=== PATIENT | male | born 1965 | race American Indian/Alaskan Native ===

== ENCOUNTER 2020-07-11 04:32 | Emergency (ER) | payer MEDICAID ==
[2020-07-11 05:51] LABS: Amphetamine Screen,Urine PRESUMPTIVE NEGATIVE; Benzodiazepines Screen,Urine PRESUMPTIVE NEGATIVE; Cannabinoid Screen,Urine PRESUMPTIVE POSITIVE; Cocaine Screen,Urine PRESUMPTIVE POSITIVE; Methadone Screen,Urine PRESUMPTIVE NEGATIVE; Opiate Screen,Urine PRESUMPTIVE NEGATIVE
[2020-07-11 05:55] LABS: Bilirubin,Urine NEG (Negative); Blood,Urine SM (Negative); Color,Urine Yellow (Yellow); Mucus,Urine FEW /HPF; Protein,Urine <15 mg/dL mg/dL (Negative); WBC,Urine < 1.0 /HPF (0.0-6.0)
[2020-07-11 05:59] LABS: Basophils % (Auto) 0.8 % (0.0-1.8); Eosinophils # (Auto) 0.2 K/mm3 (0.0-0.4); Eosinophils % (Auto) 3.1 % (0.0-4.3); Hematocrit 36.5 % (35.5-45.6); Hemoglobin 12.5 gm/dl (11.8-15.2); Lymphocytes # (Auto) 1.9 K/mm3 (1.2-5.4); Lymphocytes % (Auto) 31.9 % (13.4-35.0); Mean Corpuscular HGB Conc 34 % (32-34); Mean Corpuscular Volume 86 fl (84-94); Monocytes # (Auto) 0.5 K/mm3 (0.0-0.8); Platelet Count 285 K/mm3 (140-440); Red Blood Count 4.24 M/mm3 (3.65-5.03); Red Cell Distribution Width 16.6 % (13.2-15.2)
[2020-07-11 06:10] LABS: BUN/Creatinine Ratio 14; Blood Urea Nitrogen 15 mg/dL (9-20); Calcium 9.4 mg/dL (8.4-10.2); Hemolysis Index 6
--- NOTE | 2020-07-11 06:16 | Emergency Department Report ---
ED Psych HPI - General Chief Complaint: Psych Stated Complaint: MH Time Seen by Provider: 07/11/20 06:11 Source: patient, EMS Mode of arrival: Ambulatory - History of Present Illness Initial Comments: This is a 54-year old homeless man brought in by [facility] for a "possible overdose of unknown pills". According to the triage note the patient stated that he took these pills from a friend 1 to 2 hours prior to arrival. Furthermore, he reports that of the patient "possibly trying to jump off a bridge or a house". According to the triage note the patient states that he "wants to take it, and blow up his head". On my encounter, the patient is essentially noncommunicative. He is not speaking in complete sentences. He just responds with a yes or no answer to questions like "are you hungry" or "do you want to hurt yourself". Otherwise he is not elaborating whatsoever. MD Complaint: suicidal ideation -: unknown Associated Psychiatric Symptoms: suicidal ideation History of same: No (Patient is now denying. However dubious.) Quality: other Context: recent drug abuse Associated Symptoms: other (Not offering any complaints) Treatments Prior to Arrival: placed on mental he If Self Harm: admits thoughts of - Related Data Allergies Allergy/AdvReac Type Severity Reaction Status Date / Time No Known Allergies Allergy Unverified 07/11/20 04:42 ED Review of Systems ROS: Stated complaint: MH Other details as noted in HPI Comment: Unobtainable due to pts medical conditions (Does admit to frequent cough) ED Past Medical Hx - Past Medical History Previous Medical History?: No Additional medical history: Not offering any medical history - Social History Smoking Status: Current Every Day Smoker ED Physical Exam - General Limitations: Other (Substance abuse and poor cooperation) General appearance: alert, in no apparent distress - Head Head exam: Present: atraumatic, normocephalic - Eye Eye exam: Present: normal appearance, PERRL, EOMI. Absent: scleral icterus - ENT ENT exam: Present: mucous membranes moist - Neck Neck exam: Present: normal inspection - Respiratory Respiratory exam: Present: normal lung sounds bilaterally. Absent: respiratory distress - Cardiovascular Cardiovascular Exam: Present: regular rate, normal rhythm. Absent: systolic murmur, diastolic murmur, rubs, gallop - GI/Abdominal GI/Abdominal exam: Present: soft, normal bowel sounds. Absent: distended, tenderness, guarding, rebound, rigid - Rectal Rectal exam: Present: deferred - Extremities Exam Extremities exam: Present: normal inspection - Back Exam Back exam: Present: normal inspection - Neurological Exam Neurological exam: Present: alert, oriented X3, CN II-XII intact. Absent: motor sensory deficit - Psychiatric Psychiatric exam: Present: normal mood, flat affect - Skin Skin exam: Present: warm, dry, intact, normal color. Absent: rash ED Course Vital Signs 07/11/20 07/11/20 04:45 05:10 Temperature 98.5 F Pulse Rate 87 Respiratory 20 20 Rate Blood Pressure 111/66 O2 Sat by Pulse 97 97 Oximetry - Reevaluation(s) Reevaluation #1: The patient is placed on a 1013. He will have a chest x-ray and a coronavirus PCR. He answer to the affirmative that he has been coughing frequently. 07/11/20 07:06 ED Medical Decision Making - Lab Data Result diagrams: 07/11/20 05:33 07/11/20 05:33 Laboratory Results - last 24 hr 07/11/20 07/11/20 07/11/20 05:27 05:27 05:33 WBC RBC Hgb Hct MCV MCH MCHC RDW Plt Count Lymph % (Auto) [place] % (Auto) Eos % (Auto) Baso % (Auto) Lymph # (Auto) [place] # (Auto) Eos # (Auto) Baso # (Auto) Seg Neutrophils % Seg Neutrophils # Sodium Potassium Chloride Carbon Dioxide Anion Gap BUN Creatinine Estimated GFR BUN/Creatinine Ratio Glucose Calcium Urine Color Yellow Urine Turbidity Clear Urine pH 5.[address] 1.012 Urine Protein <15 mg/dl Urine Glucose (UA) Neg Urine Ketones Neg Urine Blood Sm Urine Nitrite Neg Urine Bilirubin Neg Urine Urobilinogen 4.0 Ur Leukocyte Esterase Neg Urine WBC (Auto) < 1.0 Urine RBC (Auto) 2.0 Urine Mucus Few Urine Opiates Screen Presumptive negative Urine Methadone Screen Presumptive negative Acetaminophen 5.0 L Ur Barbiturates Screen Presumptive negative Ur Phencyclidine Scrn Presumptive negative Ur Amphetamines Screen Presumptive negative U Benzodiazepines Scrn Presumptive negative Urine Cocaine Screen Presumptive positive U Marijuana (THC) Screen Presumptive positive Plasma/Serum Alcohol 07/11/20 07/11/20 07/11/20 05:33 05:33 05:33 WBC 6.1 RBC 4.24 Hgb 12.5 Hct 36.5 MCV 86 MCH 29 MCHC 34 RDW 16.6 H Plt Count 285 Lymph % (Auto) 31.9 [place] % (Auto) 8.0 H Eos % (Auto) 3.1 Baso % (Auto) 0.8 Lymph # (Auto) 1.9 [place] # (Auto) 0.5 Eos # (Auto) 0.2 Baso # (Auto) 0.0 Seg Neutrophils % 56.2 Seg Neutrophils # 3.4 Sodium 141 Potassium 4.0 Chloride 101.5 Carbon Dioxide 25 Anion Gap 19 BUN 15 Creatinine 1.1 Estimated GFR > 60 BUN/Creatinine Ratio 14 Glucose 96 Calcium 9.4 Urine Color Urine Turbidity Urine pH Ur Specific [place] Urine Protein Urine Glucose (UA) Urine Ketones Urine Blood Urine Nitrite Urine Bilirubin Urine Urobilinogen Ur Leukocyte Esterase Urine WBC (Auto) Urine RBC (Auto) Urine Mucus Urine Opiates Screen Urine Methadone Screen Acetaminophen Ur Barbiturates Screen Ur Phencyclidine Scrn Ur Amphetamines Screen U Benzodiazepines Scrn Urine Cocaine Screen U Marijuana (THC) Screen Plasma/Serum Alcohol 0.10 H Laboratory Results - last 24 hr 07/11/20 07/11/20 07/11/20 05:27 05:27 05:33 WBC RBC Hgb Hct MCV MCH MCHC RDW Plt Count Lymph % (Auto) [place] % (Auto) Eos % (Auto) Baso % (Auto) Lymph # (Auto) [place] # (Auto) Eos # (Auto) Baso # (Auto) Seg Neutrophils % Seg Neutrophils # Sodium Potassium Chloride Carbon Dioxide Anion Gap BUN Creatinine Estimated GFR BUN/Creatinine Ratio Glucose Calcium Total Creatine Kinase CK-MB (CK-2) CK-MB (CK-2) Rel Index Urine Color Yellow Urine Turbidity Clear Urine pH 5.[address] 1.012 Urine Protein <15 mg/dl Urine Glucose (UA) Neg Urine Ketones Neg Urine Blood Sm Urine Nitrite Neg Urine Bilirubin Neg Urine Urobilinogen 4.0 Ur Leukocyte Esterase Neg Urine WBC (Auto) < 1.0 Urine RBC (Auto) 2.0 Urine Mucus Few Salicylates < 0.3 L Urine Opiates Screen Presumptive negative Urine Methadone Screen Presumptive negative Acetaminophen Ur Barbiturates Screen Presumptive negative Ur Phencyclidine Scrn Presumptive negative Ur Amphetamines Screen Presumptive negative U Benzodiazepines Scrn Presumptive negative Urine Cocaine Screen Presumptive positive U Marijuana (THC) Screen Presumptive positive Drugs of Abuse Note Disclamer Plasma/Serum Alcohol 07/11/20 07/11/20 07/11/20 05:33 05:33 05:33 WBC RBC Hgb Hct MCV MCH MCHC RDW Plt Count Lymph % (Auto) [place] % (Auto) Eos % (Auto) Baso % (Auto) Lymph # (Auto) [place] # (Auto) Eos # (Auto) Baso # (Auto) Seg Neutrophils % Seg Neutrophils # Sodium 141 Potassium 4.0 Chloride 101.5 Carbon Dioxide 25 Anion Gap 19 BUN 15 Creatinine 1.1 Estimated GFR > 60 BUN/Creatinine Ratio 14 Glucose 96 Calcium 9.4 Total Creatine Kinase CK-MB (CK-2) CK-MB (CK-2) Rel Index Urine Color Urine Turbidity Urine pH Ur Specific [place] Urine Protein Urine Glucose (UA) Urine Ketones Urine Blood Urine Nitrite Urine Bilirubin Urine Urobilinogen Ur Leukocyte Esterase Urine WBC (Auto) Urine RBC (Auto) Urine Mucus Salicylates Urine Opiates Screen Urine Methadone Screen Acetaminophen 5.0 L Ur Barbiturates Screen Ur Phencyclidine Scrn Ur Amphetamines Screen U Benzodiazepines Scrn Urine Cocaine Screen U Marijuana (THC) Screen Drugs of Abuse Note Plasma/Serum Alcohol 0.10 H 07/11/20 07/11/20 05:33 06:16 WBC 6.1 RBC 4.24 Hgb 12.5 Hct 36.5 MCV 86 MCH 29 MCHC 34 RDW 16.6 H Plt Count 285 Lymph % (Auto) 31.9 [place] % (Auto) 8.0 H Eos % (Auto) 3.1 Baso % (Auto) 0.8 Lymph # (Auto) 1.9 [place] # (Auto) 0.5 Eos # (Auto) 0.2 Baso # (Auto) 0.0 Seg Neutrophils % 56.2 Seg Neutrophils # 3.4 Sodium Potassium Chloride Carbon Dioxide Anion Gap BUN Creatinine Estimated GFR BUN/Creatinine Ratio Glucose Calcium Total Creatine Kinase 857 H CK-MB (CK-2) 11.4 H CK-MB (CK-2) Rel Index 1.3 Urine Color Urine Turbidity Urine pH Ur Specific [place] Urine Protein Urine Glucose (UA) Urine Ketones Urine Blood Urine Nitrite Urine Bilirubin Urine Urobilinogen Ur Leukocyte Esterase Urine WBC (Auto) Urine RBC (Auto) Urine Mucus Salicylates Urine Opiates Screen Urine Methadone Screen Acetaminophen Ur Barbiturates Screen Ur Phencyclidine Scrn Ur Amphetamines Screen U Benzodiazepines Scrn Urine Cocaine Screen U Marijuana (THC) Screen Drugs of Abuse Note Plasma/Serum Alcohol - Radiology Data Radiology results: report reviewed, image reviewed (NAF) Critical care attestation.: If time is entered above; I have spent that time in minutes in the direct care of this critically ill patient, excluding procedure time. ED Disposition Clinical Impression: Cocaine abuse, Suicidal ideation, Homelessness Disposition: [id number]/TX-[id number] PSY HOSP/PSY UNIT Is pt being admited?: No Does the pt Need Aspirin: No Condition: Stable Referrals: PRIMARY CARE, [Primary Care Provider] - 3-5 Days Time of Disposition: 07:46
[2020-07-11 06:56] LABS: Creatine Kinase MB 11.4 ng/mL (0.0-4.0)
[2020-07-11] MEDS ORDERED: MAGNESIUM HYDROXIDE (MOM) ORAL LIQD UDC PO PRN (07:05)
[2020-07-11] MEDS ORDERED: ACETAMINOPHEN 325 MG TAB PO PRN (07:05)
[2020-07-11] MEDS ORDERED: ALUM-MAG HYDROXIDE-SIMETHICONE 200-200-20MG/5ML ORAL LIQD 30 ML PO PRN (07:05)
--- NOTE | 2020-07-11 07:30 | XRay Report ---
CHEST 1 VIEW INDICATION / CLINICAL INFORMATION: cough. COMPARISON: None available. FINDINGS: SUPPORT DEVICES: None. HEART / MEDIASTINUM: No significant abnormality. LUNGS / PLEURA: No significant pulmonary or pleural abnormality. No pneumothorax. ADDITIONAL FINDINGS: No significant additional findings. IMPRESSION: 1. No acute findings. Signer Name: Elidia Castro MD Signed: 07/11/2020 7:25 AM Workstation Name: [id number]
[2020-07-12 07:45] VITALS: BP 106/66
--- NOTE | 2020-07-12 10:17 | Consultation ---
History of Present Illness - Reason for Consult Consult date: 07/12/20 Reason for consult: SI, Substance abuse - History of Present Psychiatric Illness Elgin Vizcarra is a 54y/o male patient who presented to the ER for SI and visual hallucinations. During my interview with the patient today, he is a/o x 3. He says he's hearing voices telling him to "kill myself and jump off a bridge." He says he's been off his meds about "three months." He denies using any illicit dr ugs or alcohol but urine is positive for cocaine, and alcohol use. The patient says he smokes pack cigarets daily. The patient states he is "depressed." He says he "sleeps okay and appetite is good." PAST PSYCHIATRIC HISTORY Diagnoses: schizophrenia Suicide attempts or Self-harm behavior: denies Prior psychiatric hospitalizations: Yes Substance Abuse history: cocaine, alcohol Previous psychiatric medications tried: thorazine Outpatient treatment: not currently PAST MEDICAL HISTORY: none reported Family Psychiatric History: None reported or documented SOCIAL HISTORY Marital Status: Living Arrangements: Homeless Employment Status: Disabled Access to guns/weapons: None reported Education: 10th grade History of Abuse: None reported Legal History: Denies REVIEW OF SYSTEMS Constitutional: Negative for weight loss ENT: Negative for stridor Respiratory: Negative for cough or hemoptysis All other systems reviewed and are negative MENTAL STATUS EXAMINATION General Appearance: Dressed appropriately. Behavior: calm and Cooperative Mood: "depressed" Affect: Congruent with stated mood Speech: Normal tone, and pace Thought Process: Goal directed Suicidal Ideation: Yes Homicidal Ideation: Denies Hallucinations: Auditory Delusions: None elicited Insight and Judgment: Limited Memory/Cognition: Limited ASSESSMENT Schizoaffective Disorder Cocaine Use Disorder Noncompliance with medical regimen and other treatments Alcohol Abuse Substance Induced Mood Disorder TREATMENT PLAN [address] 125mg po BID Risperidone 0.5mg po BID Trazodone 50mg po qhs Melatonin 5mg po qhs prn insomnia Nicotine patch 21mg daily Folic acid 1mg po daily Multivitamin 1 tab daily Sitter: Defer to primary Medical: Per primary Disposition: Recommend acute inpatient psychiatric treatment Will follow. Thank you for this consult. Medications and Allergies Allergies Allergy/AdvReac Type Severity Reaction Status Date / Time No Known Allergies Allergy Unverified 07/11/20 04:42 Home Medications Medication Instructions Recorded Confirmed Last Taken Type No Known Home Medications [No 07/11/20 07/11/20 Unknown History Reported Home Medications] Active Meds: Active Medications Acetaminophen (Tylenol) 650 mg PO Q4HR PRN PRN Reason: Pain MILD(1-3)/Fever >100.5/RIVERA Al Hydrox/Mg Hydrox/Simethicone (Alum-Mag Hydrox-Simeth [id number]/5ml) 30 ml PO Q4HR PRN PRN Reason: Indigestion Magnesium Hydroxide (Milk Of Magnesia) 30 ml PO Q12HR PRN PRN Reason: Constipation Mental Status Exam - Vital signs Last Vital Signs Temp 98.4 F 07/12/20 07:44 Pulse 66 07/12/20 07:44 Resp 20 07/12/20 07:44 BP 106/66 07/12/20 07:44 Pulse Ox 98 07/12/20 07:44 Results Result Diagrams: 07/11/20 05:33 07/11/20 05:33 All other labs normal.
[2020-07-12] MEDS ORDERED: chlordiazePOXIDE 25 MG CAP PO PRN ×2 (10:22)
[2020-07-12] MEDS ORDERED: MULTIVITAMINS ,THERAPEUTIC TAB PO SCH (11:00)
[2020-07-12] MEDS ORDERED: risperiDONE 0.25 MG TAB PO SCH (11:00)
[2020-07-12] MEDS ORDERED: FOLIC ACID 1 MG TAB PO SCH (11:00)
[2020-07-12] MEDS ORDERED: DIVALPROEX DR 125 MG TAB PO SCH (11:00)
[2020-07-12] MEDS ORDERED: NICOTINE 21 MG/24 HR PATCH TD SCH (11:00)
[2020-07-12] MEDS ORDERED: GABAPENTIN 400 MG CAP ONE (11:33)
[2020-07-12] MEDS ORDERED: MELATONIN 5 MG TAB PO PRN (22:00)
[2020-07-12] MEDS ORDERED: traZODone 50 MG TAB PO SCH (22:00)
== END 2020-07-12 18:07 ==
LOC: ED 04:32
DX: R45.851 Suicidal ideations (principal); F14.10 Cocaine abuse, uncomplicated; F17.200 Nicotine dependence, unspecified, uncomplicated; Z59.0 Homelessness
CPT/HCPCS: 36415; 71045; 80048; 80307; 81001; 82550; 82553; 85025; 99285; U0003; 80320; G0480

== ENCOUNTER 2020-07-12 15:59 | Inpatient (IN) | payer MEDICAID ==
[2020-07-12 20:18] LABS: Chol/HDL Ratio 1.75 %
[2020-07-12] MEDS: traZODone 50 MG TAB PO SCH (22:41)
--- NOTE | 2020-07-13 11:00 | History and Physical Report ---
GP History & Physical - History of Present Illness Date of admission: 07/12/20 Date of Examination: 07/13/20 Reason for Admission: Danger to self, Failure of Outpatient Treatment History of Present Illness: Amrik Vizcarra is a 54y/o male patient who presented to the ER for SI and visual hallucinations. I first examined the patient in the ER yesterday. During my interview with the patient today, he is a/o x 3. Yesterday he stated that he was he's hearing voices telling him to "kill myself and jump off a bridge." The patient says he is no longer hearing the voices today. When asked was he still suicidal, the patient states "a little." He says he's been off his meds about "three months." He admitted today to using cocaine, and alcohol use. The patient says he smokes pack cigarets daily. The patient states he is "depressed." He says he "sleeps good and appetite is good." PAST PSYCHIATRIC HISTORY Diagnoses: schizophrenia Suicide attempts or Self-harm behavior: denies Prior psychiatric hospitalizations: Yes Substance Abuse history: cocaine, alcohol Previous psychiatric medications tried: thorazine Outpatient treatment: not currently PAST MEDICAL HISTORY: none reported Family Psychiatric History: None reported or documented SOCIAL HISTORY Marital Status: Living Arrangements: Homeless Employment Status: Disabled Access to guns/weapons: None reported Education: 10th grade History of Abuse: None reported Legal History: Denies REVIEW OF SYSTEMS Constitutional: Negative for weight loss ENT: Negative for stridor Respiratory: Negative for cough or hemoptysis All other systems reviewed and are negative MENTAL STATUS EXAMINATION General Appearance: Dressed appropriately. Behavior: calm and Cooperative Mood: "depressed" Affect: Congruent with stated mood Speech: Normal tone, and pace Thought Process: Goal directed Suicidal Ideation: Yes Homicidal Ideation: Denies Hallucinations: Auditory Delusions: None elicited Insight and Judgment: Limited Memory/Cognition: Limited ASSESSMENT Schizophrenia Cocaine Use Disorder Noncompliance with medical regimen and other treatments Alcohol Abuse Treatment Plan Patient admitted for inpatient psychiatric evaluation, medication adjustment and close monitoring The patient's behavior, mood, sleep and appetite will be closely monitored. Patient enrolled in individual and group therapeutic sessions and encouraged to attend. Patient provided with a safe and structured environment. Patient's physical health needs will be addressed by the Hospitalist. Hospitalist Consulted Labs including CBC, CMP, Lipid profile and Hemoglobin A1C levels ordered for baseline reference Social Assessment will be completed and the Investment Counselor will work with patient and family to ensure a suitable and safe disposition Medication adjustment will be made as clinically indicated JOSE Reed DR 125mg po BID Risperidone 0.5mg po BID Trazodone 50mg po qhs Melatonin 5mg po qhs prn insomnia Nicotine patch 21mg daily Folic acid 1mg po daily Usual Wellness Voodoo/Preservation: - Start Trazodone 50 mg po QHS & 50 mg po QHS PRN between 10 PM & 2 AM for insomnia - Start Melatonin 5 mg po QHS to promote circadian rhythm - Start [place]-3 for brain health, reduce impulsivity, and as adjunctive treatment for mood disorder, continue upon discharge given overall benefits. - Start B1 prophylaxis with 200 mg po for 5 days This is to certify that Am[facility] because he is expected to improve for auditory hallucinations and suicidal thoughts. Estimated days: 5 Post hospital care: primary care provider, psychiatric provider Legal Status: Voluntary Reaction to Hospitalization: Accepting Medications and Allergies Allergies Allergy/AdvReac Type Severity Reaction Status Date / Time No Known Allergies Allergy Unverified 07/11/20 04:42 Home Medications Medication Instructions Recorded Confirmed Last Taken Type No Known Home Medications [No 07/11/20 07/12/20 Unknown History Reported Home Medications] Active Meds: Active Medications Trazodone HCl (Desyrel) 50 mg PO QHS [facility] Last Admin: 07/12/20 22:41 Dose: 50 mg Documented by: Results - Results Labs/Vitals: Laboratory Last Values POC Glucose 131 mg/dL (70-105) H 07/12/20 20:49 Hemoglobin A1c 5.5 % (4-6) 07/12/20 19:33 Triglycerides 76 mg/dL (2-149) 07/12/20 19:33 Cholesterol 181 mg/dL (50-199) 07/12/20 19:33 LDL Cholesterol Direct 82 mg/dL (50-130) 07/12/20 19:33 HDL Cholesterol 103 mg/dL (40-59) H 07/12/20 19:33 Cholesterol/HDL Ratio 1.75 % 07/12/20 19:33 TSH 3.470 mlU/mL (0.270-4.200) 07/12/20 19:33 Last Vital Signs Temp 98.6 F 07/13/20 08:35 Pulse 84 11/10/20 08:35 Resp 18 07/13/20 08:35 BP 108/73 07/13/20 08:35 Pulse Ox 95 07/13/20 08:35 Physical Examination - Constitutional Vitals: Vital Signs Temp Pulse Resp BP Pulse Ox 98.6 F 84 18 108/73 95 07/13/20 08:35 07/13/20 08:35 07/13/20 08:35 07/13/20 08:35 07/13/20 08:35 Temperature -Last 24 Hours Temperature 98.6 F Temperature 98.6 F Temperature 98.6 F Temperature 98.7 F Mental Status Exam - Vital signs Last Vital Signs Temp 98.6 F 07/13/20 08:35 Pulse 84 07/13/20 08:35 Resp 18 07/13/20 08:35 BP 108/73 07/13/20 08:35 Pulse Ox 95 07/13/20 08:35 Physician Certification - Certification Statement Physician Certification Statement: This is an acknowledgement statement that AMRIK VIZCARRA is a 54 year old M who requires inpatient psychiatric admission for treatment which could reasonably be expected to improve the patient's condition for Estimated period of time patient will need to remain in the hospital: [ ] Plan for post-hospital care: [ ]
[2020-07-13] MEDS ORDERED: MELATONIN 5 MG TAB PO PRN (11:04)
[2020-07-13] MEDS ORDERED: chlordiazePOXIDE 25 MG CAP PO PRN ×2 (11:04)
[2020-07-13] MEDS: NICOTINE 21 MG/24 HR PATCH TD SCH (12:10)
[2020-07-13] MEDS: FOLIC ACID 1 MG TAB PO SCH (12:10)
[2020-07-13] MEDS: DIVALPROEX DR 125 MG TAB PO SCH ×2 (12:10→22:27)
[2020-07-13] MEDS: risperiDONE 0.25 MG TAB PO SCH ×2 (12:15→22:28)
--- NOTE | 2020-07-13 17:56 | Consultation ---
History of Present Illness - Reason for Consult Consult date: 07/13/20 medical management Requesting physician: MACHELLE DE LA CRUZ - History of Present Illness Patient is a 54-year-old female admitted to the hospital with suicidal ideation and visual hallucination yelling that he she is going to kill herself and jump off a bridge. We requested to assist in management of the patient while admitted. She denies any chest pain nausea vomiting or diarrhea denies any chronic medical condition high blood pressure diabetes cholesterol problems in the past. Although she smokes tobacco a pack a day. She did reportedly inform the staff that she was depressed. Past History Past Medical History: other (Depression) Past Surgical History: No surgical history Social history: smoking Family history: no significant family history Medications and Allergies Allergies Allergy/AdvReac Type Severity Reaction Status Date / Time No Known Allergies Allergy Unverified 07/11/20 04:42 Home Medications Medication Instructions Recorded Confirmed Last Taken Type No Known Home Medications [No 07/11/20 07/12/20 Unknown History Reported Home Medications] Active Meds: Active Medications Chlordiazepoxide HCl (Librium) 50 mg PO Q1H PRN PRN Reason: CIWA-Ar 8-15 Chlordiazepoxide HCl (Librium) 100 mg PO Q1H PRN PRN Reason: CIWA-Ar 16-25 Divalproex Sodium (Depakote Dr) 125 mg PO BID [facility] Last Admin: 07/13/20 12:10 Dose: 125 mg Documented by: Folic Acid (Folvite) 1 mg PO QDAY [facility] Last Admin: 07/13/20 12:10 Dose: 1 mg Documented by: Melatonin (Melatonin) 5 mg PO QHS PRN PRN Reason: Sleep Nicotine (Habitrol) 21 mg TD QDAY [facility] Last Admin: 07/13/20 12:10 Dose: 21 mg Documented by: Risperidone (Risperdal) 0.25 mg PO BID [facility] Last Admin: 07/13/20 12:15 Dose: 0.25 mg Documented by: Trazodone HCl (Desyrel) 50 mg PO QHS [facility] Last Admin: 07/12/20 22:41 Dose: 50 mg Documented by: Review of Systems All systems: negative Constitutional: no weight gain, no fever, no chills, no sweats, no night sweats Cardiovascular: no chest pain, no orthopnea, no palpitations, no rapid/irregular heart beat, no shortness of breath Respiratory: no cough with sputum, no excessive sputum, no hemoptysis Gastrointestinal: no abdominal pain, no vomiting Exam - Physical Exam Narrative exam: VITAL SIGNS: Reviewed. GENERAL: The patient appears normally developed, Vital signs as documented. HEAD: No signs of head trauma. EYES: Pupils are equal. Extraocular motions intact. EARS: Hearing grossly intact. MOUTH: Oropharynx is normal. NECK: No adenopathy, no JVD. CHEST: Chest with clear breath sounds bilaterally. No wheezes, rales, or rhonchi. CARDIAC: Regular rate and rhythm. S1 and S2, without murmurs, gallops, or rubs. VASCULAR: No Edema. Peripheral pulses normal and equal in all extremities. ABDOMEN: Soft, non tender and non distended. No rebound or guarding, and no masses palpated. Bowel Sounds normal. MUSCULOSKELETAL: Good range of motion of all major joints. Extremities without clubbing, cyanosis or edema. NEUROLOGIC EXAM: Alert and oriented x 3 No focal sensory or strength deficits. Speech normal. Follows commands. PSYCHIATRIC: Mood normal. SKIN: detail exam as documented in skin assessment - Constitutional Vitals: Temp Pulse Resp BP Pulse Ox 98.6 F 84 18 108/73 95 07/13/20 08:35 07/13/20 08:35 07/13/20 08:35 07/13/20 08:35 07/13/20 08:35 Results - Labs Labs: Abnormal lab results 07/12/20 07/12/20 Range/Units 19:33 20:49 POC Glucose 131 H (70-105) mg/dL HDL Cholesterol 103 H (40-59) mg/dL Assessment and Plan 54-year-old female admitted to the hospital with suicidal ideation with known history of schizophrenia and tobacco use no acute distress at this time. Schizophrenia Tobacco use disorder Plan Continue management per psych Counseling provided to the patient on need to quit tobacco use 15 minutes of counseling provided to the patient. We will recommend a patch if patient request for 1. Thank you for allowing us take part in the care of your patient as an information become available more therapeutic or diagnostic measures may need to implement
[2020-07-13] MEDS: traZODone 50 MG TAB PO SCH (22:27)
[2020-07-14] MEDS: DIVALPROEX DR 125 MG TAB PO SCH ×2 (09:19→21:20)
[2020-07-14] MEDS: NICOTINE 21 MG/24 HR PATCH TD SCH (09:19)
[2020-07-14] MEDS: risperiDONE 0.25 MG TAB PO SCH ×2 (09:20→21:20)
[2020-07-14] MEDS: FOLIC ACID 1 MG TAB PO SCH (09:20)
--- NOTE | 2020-07-14 11:30 | Progress Note ---
Subjective Date of service: 07/14/20 Principal diagnosis: Schizophrenia Subjective Comment: During my interview with [facility] patient today he is sitting down eating breakfast. He is calm and cooperative. He denies SI/HI or hallucinations of any kind. He says he feels "alright." Reason for continued inpatient treatment: The patient is significantly better. He is awaiting placement. Will secure placement to ensue a safe discharge. REVIEW OF SYSTEMS Constitutional: Negative for weight loss ENT: Negative for stridor Respiratory: Negative for cough or hemoptysis All other systems reviewed and are negative MENTAL STATUS EXAMINATION General Appearance: Dressed appropriately. Behavior: calm and Cooperative Mood: "depressed" Affect: Congruent with stated mood Speech: Normal tone, and pace Thought Process: Goal directed Suicidal Ideation: Yes Homicidal Ideation: Denies Hallucinations: Auditory Delusions: None elicited Insight and Judgment: Limited Memory/Cognition: Limited ASSESSMENT Schizophrenia Cocaine Use Disorder Noncompliance with medical regimen and other treatments Alcohol Abuse Treatment Plan Patient admitted for inpatient psychiatric evaluation, medication adjustment and close monitoring The patient's behavior, mood, sleep and appetite will be closely monitored. Patient enrolled in individual and group therapeutic sessions and encouraged to attend. Patient provided with a safe and structured environment. Patient's physical health needs will be addressed by the Hospitalist. Hospitalist Consulted Labs including CBC, CMP, Lipid profile and Hemoglobin A1C levels ordered for baseline reference Social Assessment will be completed and the Engine Lathe Set Up Operator Tool will work with patient and family to ensure a suitable and safe disposition Medication adjustment will be made as clinically indicated No changes made today Usual Wellness Nondenominational/Preservation: - Start Trazodone 50 mg po QHS & 50 mg po QHS PRN between 10 PM & 2 AM for insomnia - Start Melatonin 5 mg po QHS to promote circadian rhythm - Start [place]-3 for brain health, reduce impulsivity, and as adjunctive treatment for mood disorder, continue upon discharge given overall benefits. - Start B1 prophylaxis with 200 mg po for 5 days This is to certify that Elgin Vizcarra was admitted to any-psych because he is expected to improve for auditory hallucinations and suicidal thoughts. Estimated days: 3 Post hospital care: primary care provider, psychiatric provider Medications and Allergies Allergies Allergy/AdvReac Type Severity Reaction Status Date / Time No Known Allergies Allergy Unverified 07/11/20 04:42 Home Medications Medication Instructions Recorded Confirmed Last Taken Type No Known Home Medications [No 07/11/20 07/12/20 Unknown History Reported Home Medications] Active Meds: Active Medications Chlordiazepoxide HCl (Librium) 50 mg PO Q1H PRN PRN Reason: CIWA-Ar 8-15 Chlordiazepoxide HCl (Librium) 100 mg PO Q1H PRN PRN Reason: CIWA-Ar 16-25 Divalproex Sodium (Depakote Dr) 125 mg PO BID [facility] Last Admin: 07/14/20 09:19 Dose: 125 mg Documented by: Folic Acid (Folvite) 1 mg PO QDAY [facility] Last Admin: 07/14/20 09:20 Dose: 1 mg Documented by: Melatonin (Melatonin) 5 mg PO QHS PRN PRN Reason: Sleep Nicotine (Habitrol) 21 mg TD QDAY [facility] Last Admin: 07/14/20 09:19 Dose: 21 mg Documented by: Risperidone (Risperdal) 0.25 mg PO BID [facility] Last Admin: 07/14/20 09:20 Dose: 0.25 mg Documented by: Trazodone HCl (Desyrel) 50 mg PO QHS [facility] Last Admin: 07/13/20 22:27 Dose: 50 mg Documented by: Results - Results Labs/Vitals: Laboratory Last Values POC Glucose 131 mg/dL (70-105) H 07/12/20 20:49 Hemoglobin A1c 5.5 % (4-6) 07/12/20 19:33 Triglycerides 76 mg/dL (2-149) 07/12/20 19:33 Cholesterol 181 mg/dL (50-199) 07/12/20 19:33 LDL Cholesterol Direct 82 mg/dL (50-130) 07/12/20 19:33 HDL Cholesterol 103 mg/dL (40-59) H 07/12/20 19:33 Cholesterol/HDL Ratio 1.75 % 07/12/20 19:33 TSH 3.470 mlU/mL (0.270-4.200) 07/12/20 19:33 Last Vital Signs Temp 98.4 F 07/14/20 08:35 Pulse 72 07/14/20 08:35 Resp 18 07/14/20 08:35 BP 106/70 07/14/20 08:35 Pulse Ox 100 07/14/20 08:35
[2020-07-14] MEDS: traZODone 50 MG TAB PO SCH (21:20)
[2020-07-15] MEDS: risperiDONE 0.25 MG TAB PO SCH ×2 (10:19→21:13)
[2020-07-15] MEDS: FOLIC ACID 1 MG TAB PO SCH (10:20)
[2020-07-15] MEDS: DIVALPROEX DR 125 MG TAB PO SCH ×2 (10:20→21:14)
[2020-07-15] MEDS: NICOTINE 21 MG/24 HR PATCH TD SCH (10:20)
--- NOTE | 2020-07-15 11:12 | Progress Note ---
Subjective Date of service: 07/15/20 Principal diagnosis: Schizophrenia Subjective Comment: During my interview with [facility] patient today he is sitting down eating breakfast. He is calm and cooperative. He denies hallucinations of any kind. He says suicidal thoughts "come and go." He says "but I don't have them right now." The patient says, "I've been feeling better and better." He then says "I feel great." Reason for continued inpatient treatment: The patient is improved significantly. He has suicidal thoughts on and off. Will continue to monitor and secure placement to ensue a safe discharge. REVIEW OF SYSTEMS Constitutional: Negative for weight loss ENT: Negative for stridor Respiratory: Negative for cough or hemoptysis All other systems reviewed and are negative MENTAL STATUS EXAMINATION General Appearance: Dressed appropriately. Behavior: calm and Cooperative Mood: "better, great" Affect: Congruent with stated mood Speech: Normal tone, and pace Thought Process: Goal directed Suicidal Ideation: on and off Homicidal Ideation: Denies Hallucinations: Denies Delusions: None elicited Insight and Judgment: Limited Memory/Cognition: Limited ASSESSMENT Schizophrenia Cocaine Use Disorder Noncompliance with medical regimen and other treatments Alcohol Abuse Treatment Plan Patient admitted for inpatient psychiatric evaluation, medication adjustment an d close monitoring The patient's behavior, mood, sleep and appetite will be closely monitored. Patient enrolled in individual and group therapeutic sessions and encouraged to attend. Patient provided with a safe and structured environment. Patient's physical health needs will be addressed by the Hospitalist. Hospitalist Consulted Labs including CBC, CMP, Lipid profile and Hemoglobin A1C levels ordered for baseline reference Social Assessment will be completed and the Fire Protection Inspector will work with patient and family to ensure a suitable and safe disposition Medication adjustment will be made as clinically indicated No changes made today Usual Wellness Roman Catholic/Preservation: - Start Trazodone 50 mg po QHS & 50 mg po QHS PRN between 10 PM & 2 AM for insomnia - Start Melatonin 5 mg po QHS to promote circadian rhythm - Start [place]-3 for brain health, reduce impulsivity, and as adjunctive treatment for mood disorder, continue upon discharge given overall benefits. - Start B1 prophylaxis with 200 mg po for 5 days This is to certify that Elgin Vizacrra was admitted to [facility] because he is expected to improve for auditory hallucinations and suicidal thoughts. Estimated days: 3 Post hospital care: primary care provider, psychiatric provider Medications and Allergies Allergies Allergy/AdvReac Type Severity Reaction Status Date / Time No Known Allergies Allergy Unverified 07/11/20 04:42 Home Medications Medication Instructions Recorded Confirmed Last Taken Type No Known Home Medications [No 07/11/20 07/12/20 Unknown History Reported Home Medications] Active Meds: Active Medications Chlordiazepoxide HCl (Librium) 50 mg PO Q1H PRN PRN Reason: CIWA-Ar 8-15 Chlordiazepoxide HCl (Librium) 100 mg PO Q1H PRN PRN Reason: CIWA-Ar 16-25 Divalproex Sodium (Depakote Dr) 125 mg PO BID [facility] Last Admin: 07/15/20 10:20 Dose: 125 mg Documented by: Folic Acid (Folvite) 1 mg PO QDAY [facility] Last Admin: 07/15/20 10:20 Dose: 1 mg Documented by: Melatonin (Melatonin) 5 mg PO QHS PRN PRN Reason: Sleep Nicotine (Habitrol) 21 mg TD QDAY [facility] Last Admin: 07/15/20 10:20 Dose: 21 mg Documented by: Risperidone (Risperdal) 0.25 mg PO BID [facility] Last Admin: 07/15/20 10:19 Dose: 0.25 mg Documented by: Trazodone HCl (Desyrel) 50 mg PO QHS [facility] Last Admin: 07/14/20 21:20 Dose: 50 mg Documented by: Results - Results Labs/Vitals: Laboratory Last Values POC Glucose 131 mg/dL (70-105) H 07/12/20 20:49 Hemoglobin A1c 5.5 % (4-6) 07/12/20 19:33 Triglycerides 76 mg/dL (2-149) 07/12/20 19:33 Cholesterol 181 mg/dL (50-199) 07/12/20 19:33 LDL Cholesterol Direct 82 mg/dL (50-130) 07/12/20 19:33 HDL Cholesterol 103 mg/dL (40-59) H 07/12/20 19:33 Cholesterol/HDL Ratio 1.75 % 07/12/20 19:33 TSH 3.470 mlU/mL (0.270-4.200) 07/12/20 19:33 Last Vital Signs Temp 98.6 F 07/14/20 19:44 Pulse 77 07/14/20 19:44 Resp 16 07/14/20 19:44 BP 124/78 07/14/20 19:44 Pulse Ox 100 07/14/20 19:44
--- NOTE | 2020-07-15 12:22 | Progress Note ---
Assessment and Plan - Patient Problems (1) Cocaine abuse Current Visit: No Status: Acute Plan to address problem: Supportive care, outpatient drug dependence follow-up care. (2) Homelessness Current Visit: No Status: Acute Plan to address problem: Supportive care. Case management follow-up (3) Suicidal ideation Current Visit: No Status: Acute Plan to address problem: Supportive care, treatment as per primary team History Interval history: 54 YO Male with Depression admitted to [facility] for Psychiatric stabilization. Patient seen and evaluated in the recreation room. Patient resting comfortably. Patient cooperative today. No reported nursing events. Patient denies fever, chills, chest pain, palpitations. Hospitalist Physical - Constitutional Vitals: Temp Pulse Resp BP Pulse Ox 98.6 F 77 16 124/78 100 07/14/20 19:44 07/14/20 19:44 07/14/20 19:44 07/14/20 19:44 07/14/20 19:44 General appearance: Present: no acute distress - EENT Eyes: Present: PERRL ENT: hearing intact - Neck Neck: Present: supple - Respiratory Respiratory: bilateral: CTA - Cardiovascular Rhythm: regular Heart Sounds: Present: S1 & S2 - Extremities Extremities: no ischemia Peripheral Pulses: within normal limits - Abdominal General gastrointestinal: soft, non-tender, non-distended, normal bowel sounds - Integumentary Integumentary: Present: clear, dry - Psychiatric Psychiatric: cooperative - Neurologic Neurologic: CNII-XII intact Results - Labs Labs: Laboratory Last Values POC Glucose 131 mg/dL (70-105) H 07/12/20 20:49 Hemoglobin A1c 5.5 % (4-6) 07/12/20 19:33 Triglycerides 76 mg/dL (2-149) 07/12/20 19:33 Cholesterol 181 mg/dL (50-199) 07/12/20 19:33 LDL Cholesterol Direct 82 mg/dL (50-130) 07/12/20 19:33 HDL Cholesterol 103 mg/dL (40-59) H 07/12/20 19:33 Cholesterol/HDL Ratio 1.75 % 07/12/20 19:33 TSH 3.470 mlU/mL (0.270-4.200) 07/12/20 19:33 Keyes/IV: Voiding Method Toilet Active Medications - Current Medications Current Medications: Generic Name Dose Route Start Last Admin Trade Name Freq PRN Reason Stop Dose Admin Chlordiazepoxide HCl 50 mg 07/13/20 11:04 Librium PO Q1H PRN CIWA-Ar 8-15 Chlordiazepoxide HCl 100 mg 07/13/20 11:04 Librium PO Q1H PRN CIWA-Ar 16-25 Divalproex Sodium 125 mg 07/13/20 12:00 07/15/20 10:[address] PO 125 mg BID VICTOR M Administration Folic Acid 1 mg 07/13/20 13:00 07/15/20 10:20 Folvite PO 1 mg QDAY VICTOR M Administration Melatonin 5 mg 07/13/20 11:04 Melatonin PO QHS PRN Sleep Nicotine 21 mg 07/13/20 13:00 07/15/20 10:20 Habitrol TD 21 mg QDAY VICTOR M Administration Risperidone 0.25 mg 07/13/20 13:00 07/15/20 10:19 Risperdal PO 0.25 mg BID VICTOR M Administration Trazodone HCl 50 mg 07/12/20 22:00 07/14/20 21:20 Desyrel PO 50 mg QHS VICTOR M Administration
[2020-07-15] MEDS: traZODone 50 MG TAB PO SCH (21:14)
--- NOTE | 2020-07-16 07:17 | Progress Note ---
Subjective Date of service: 07/16/20 Principal diagnosis: Schizophrenia Subjective Comment: Per Psych Nurse: Pt calm and cooperative, med compliant, participated in group activity. He denies hearing voices, denies SI/HI. Will continue to monitor. Group: pt was present for group and actively engaged for full duration. pt's interaction with peers was positive. pt laughed, smiled, socialized, and was supportive. pt cheered for peers as they scored. pt showed positive/friendly competition. pt enjoyed the music. pt activity of choice was casas bag toss and coloring a velvet cross. pt really enjoyed group. Psych Progress HPI In my interview with the patient this morning, the patient reports mood as good, patient says he knows it because he is not hearing voices anymore, no more visual hallucinations, appetite and sleep is improved, patient states that he is not homeless and remembers where he was picked up from [facility] prior to being brought here. Reason for continuing inpatient treatment: Improved mood stability, normal visual auditory hallucinations, patient has been medication compliant and plan for discharge today Review of Symptoms: Constitutional: Negative for weight loss ENT: Negative for stridor Respiratory: Negative for cough or hemoptysis All other systems reviewed and are negative MENTAL STATUS EXAMINATION General Appearance and Behavior: Age appropriate, good hygiene, wearing appropriate clothes, good eye contact, cooperative polite with questioning. Cooperation: Participating/engaged Psychomotor Behavior: unremarkable and within normal limits Mood: Good Affect and affective range: congruent with mood Thought Process: Fluent/Logical, Thought Content: Within reality, Speech: Normal volume, Regular rate and rhythm, Intellectual Functioning: Average Suicidal Ideation: Denies SI Homicidal Ideation: Denies HI Impulse Control: Unimpaired Insight and Judgment: Normal insight and judgment, Memory: Normal, Attention: Normal, Orientation: Alert, oriented, Assessment and Plan - Patient Problems (1) Schizoaffective disorder with good prognostic features Current Visit: Yes Status: Acute Treatment Plan Will discharge with current meds Patient admitted for inpatient psychiatric evaluation, medication adjustment and close monitoring The patient's behavior, mood, sleep and appetite will be closely monitored. Patient enrolled in individual and group therapeutic sessions and encouraged to attend. Patient provided with a safe and structured environment. Patient's physical health needs will be addressed by the Hospitalist. Hospitalist Consulted Labs including CBC, CMP, Lipid profile and Hemoglobin A1C levels ordered for jus randolph Social Assessment will be completed and the Hand Bootmaker will work with patient and family to ensure a suitable and safe disposition Medication adjustment will be made as clinically indicated Usual Wellness Presybeterian/Preservation: - Start Trazodone 50 mg po QHS & 50 mg po QHS PRN between 10 PM & 2 AM for insomnia - Start Melatonin 5 mg po QHS to promote circadian rhythm - Start [place]-3 for brain health, reduce impulsivity, and as adjunctive treatment for mood disorder, continue upon discharge given overall benefits. - Start B1 prophylaxis with 200 mg po for 5 days The patient agreed on the treatment plan, understood the risk, benefit, alternative treatment, potential consequence of no treatment, and gave informed consent. Initial Certification Inpatient psych services: I certify that the inpatient psychiatric services are required for treatment that could reasonably be expected to improve the patient's condition. Estimated days: 1 Post hospital care: primary care provider, psychiatric provider Assessment and Plan - Patient Problems (1) Schizoaffective disorder with good prognostic features Current Visit: Yes Status: Acute Medications and Allergies Allergies Allergy/AdvReac Type Severity Reaction Status Date / Time No Known Allergies Allergy Unverified 07/11/20 04:42 Home Medications Medication Instructions Recorded Confirmed Last Taken Type No Known Home Medications [No 07/11/20 07/12/20 Unknown History Reported Home Medications] Active Meds: Active Medications Chlordiazepoxide HCl (Librium) 50 mg PO Q1H PRN PRN Reason: CIWA-Ar 8-15 Chlordiazepoxide HCl (Librium) 100 mg PO Q1H PRN PRN Reason: CIWA-Ar 16-25 Divalproex Sodium (Depakote Dr) 125 mg PO BID [facility] Last Admin: 07/15/20 21:14 Dose: 125 mg Documented by: Folic Acid (Folvite) 1 mg PO QDAY [facility] Last Admin: 07/15/20 10:20 Dose: 1 mg Documented by: Melatonin (Melatonin) 5 mg PO QHS PRN PRN Reason: Sleep Nicotine (Habitrol) 21 mg TD QDAY [facility] Last Admin: 07/15/20 10:20 Dose: 21 mg Documented by: Risperidone (Risperdal) 0.25 mg PO BID [facility] Last Admin: 07/15/20 21:13 Dose: 0.25 mg Documented by: Trazodone HCl (Desyrel) 50 mg PO QHS [facility] Last Admin: 07/15/20 21:14 Dose: 50 mg Documented by: Results - Results Labs/Vitals: Laboratory Last Values POC Glucose 131 mg/dL (70-105) H 07/12/20 20:49 Hemoglobin A1c 5.5 % (4-6) 07/12/20 19:33 Triglycerides 76 mg/dL (2-149) 07/12/20 19:33 Cholesterol 181 mg/dL (50-199) 07/12/20 19:33 LDL Cholesterol Direct 82 mg/dL (50-130) 07/12/20 19:33 HDL Cholesterol 103 mg/dL (40-59) H 07/12/20 19:33 Cholesterol/HDL Ratio 1.75 % 07/12/20 19:33 TSH 3.470 mlU/mL (0.270-4.200) 07/12/20 19:33 Last Vital Signs Temp 98.6 F 07/14/20 19:44 Pulse 77 07/14/20 19:44 Resp 16 07/14/20 19:44 BP 124/78 07/14/20 19:44 Pulse Ox 100 07/14/20 19:44
[2020-07-16] MEDS: FOLIC ACID 1 MG TAB PO SCH (09:58)
[2020-07-16] MEDS: DIVALPROEX DR 125 MG TAB PO SCH (09:58)
[2020-07-16] MEDS: NICOTINE 21 MG/24 HR PATCH TD SCH (10:00)
[2020-07-16] MEDS: risperiDONE 0.25 MG TAB PO SCH (10:00)
--- NOTE | 2020-07-16 11:38 | Discharge Summary ---
Providers - Providers Date of Admission: 07/12/20 17:59 Date of discharge: 07/16/20 Attending physician: MACHELLE DE LA CRUZ MD 07/12/20 16:14 Consult to Physician [CONS] Routine Comment: Consulting Provider: RODOLFO ROSE Physician Instructions: Reason For Exam: manage medical conditions Primary care physician: CLASSIFIER Hospitalization Reason for admission: Danger to self Condition: Good Hospital course: The patient was provided inpatient psychiatric treatment with safe and supportive environment, group/individual therapy, psychiatric medication, medication adjustment, adverse effect monitor, medical evaluation, medical treatment, social service assessment, social support meeting, placement asse ssment and psycho-education. The patients mood, cognition, behavior, motivation, compliance to treatment and appreciation on family/social support are improved and stabilized. At the time of discharge, the patient had no suicidal ideas, no homicidal ideas, no aggressive thoughts, no endangering behavior and no debilitating adverse effects. The patient agareed on the treatment plan, understood the risk, benefit, alternative treatment, potential consequence of no treatment, and gave informed consent. Disposition: DC-01 TO HOME OR SELFCARE Allergies/Adverse Reactions: Allergies No Known Allergies Allergy (Unverified 07/11/20 04:42) Vital Signs: Last Vital Signs Temp 98.6 F 07/14/20 19:44 Pulse 77 07/14/20 19:44 Resp 16 07/14/20 19:44 BP 124/78 07/14/20 19:44 Pulse Ox 100 07/14/20 19:44 Last Lab: Laboratory Last Values POC Glucose 131 mg/dL (70-105) H 07/12/20 20:49 Hemoglobin A1c 5.5 % (4-6) 07/12/20 19:33 Triglycerides 76 mg/dL (2-149) 07/12/20 19:33 Cholesterol 181 mg/dL (50-199) 07/12/20 19:33 LDL Cholesterol Direct 82 mg/dL (50-130) 07/12/20 19:33 HDL Cholesterol 103 mg/dL (40-59) H 07/12/20 19:33 Cholesterol/HDL Ratio 1.75 % 07/12/20 19:33 TSH 3.470 mlU/mL (0.270-4.200) 07/12/20 19:33 - Discharge Diagnoses (1) Schizoaffective disorder with good prognostic features Status: Acute Core Measure Documentation - Palliative Care Palliative Care/ Comfort Measures: Not Applicable - Core Measures Any of the following diagnoses?: none Exam - Constitutional Vitals: Temp Pulse Resp BP Pulse Ox 98.6 F 77 16 124/78 100 07/14/20 19:44 07/14/20 19:44 07/14/20 19:44 07/14/20 19:44 07/14/20 19:44 General appearance: Present: no acute distress - EENT Eyes: Present: PERRL, EOM intact ENT: hearing intact, clear oral mucosa - Neck Neck: Present: supple, normal ROM - Respiratory Respiratory effort: normal - Abdominal Male genitourinary: Present: deferred - Integumentary Integumentary: Present: clear, warm, dry Plan Activity: no restrictions Care Plan Goals: Maintain good and stable mental health. Plan of Treatment: The patient should be compliant with medications, not to use drugs and not to drink alcohol. The patient understands that if suicidal ideas, homicidal ideas, or any end angering thoughts arise, the patient should immediately seek for emergent assistance including but not limited to crisis hot line and emergency room. Follow up with outpatient Psychiatrist and PCP within 7 - 14 days of discharge. Follow up with: PRIMARY CARE,MD [Primary Care Provider] - 7 Days Prescriptions: traZODone [Desyrel] 50 mg PO QHS #30 tablet Divalproex [Depakote Dr] 250 mg PO BID #60 tablet risperiDONE [RisperDAL] 0.5 mg PO BID #60 tablet
--- NOTE | 2020-07-16 11:54 | XRay Report ---
CHEST 1 VIEW INDICATION: R/U TB. COMPARISON: 07/11/2020 FINDINGS: Support devices: None. Heart: Within normal limits. Lungs/Pleura: No acute air space or interstitial disease. Additional findings: None. IMPRESSION: No acute findings. Signer Name: Messi Navarro Jr, MD Signed: 07/16/2020 11:50 AM Workstation Name: [id number]
[2020-07-16 13:42] VITALS: BP 96/60
== END 2020-07-16 15:40 | disposition home or self-care (01) | DRG 885 ==
LOC: UNDOADMIN 15:59 → 3A 15:59 → 5A 17:59
PROVIDERS: ADMIT Psychiatry & Neurology Psychiatry; ATTEND Psychiatry & Neurology Psychiatry
DX: F20.9 Schizophrenia, unspecified (principal); Z20.828 Contact with and (suspected) exposure to other viral communicable diseases; F14.10 Cocaine abuse, uncomplicated; R45.851 Suicidal ideations; F10.10 Alcohol abuse, uncomplicated; Z59.0 Homelessness; Z63.5 Disruption of family by separation and divorce; Z91.19 Patient's noncompliance with other medical treatment and regimen; Z79.899 Other long term (current) drug therapy
CPT/HCPCS: 36415; 71045; 80061; 82962; 83036; 84443; G0378; U0003

== ENCOUNTER 2020-07-24 20:16 | Emergency (ER) | payer MEDICAID | END 2020-07-25 | disposition left against medical advice (07) | LOC: ED 20:16 | DX: R45.851 Suicidal ideations (principal); Z53.21 Procedure and treatment not carried out due to patient leaving prior to being seen by health care provider ==